=== PATIENT | female | born 1990 | race Caucasian/White ===

== ENCOUNTER 2016-12-12 22:10 | Emergency (ER) | payer SELFPAY ==
[~2016-12-12] VITALS: Ht 154.9 cm; Wt 49.9 kg
[~2016-12-12 22:10] MED LIST: SUCR1TAB29 PO; SULF1TAB24 PO
[2016-12-12] MEDS ORDERED: IPRATRPIUM/ALBUTEROL 0.5/2.5MG 3 ML NEBU. NEB ONE ×2 (22:15→22:30)
[2016-12-12] MEDS ORDERED: methylPREDNISolone SOD SUCC PF 125 MG/2 ML VIAL. IV ONE (22:30)
[2016-12-12] MEDS ORDERED: IV NORMAL SALINE 1000ML BAG 1,000 ML IV ONE (22:30)
[2016-12-12] MEDS ORDERED: FAMOTIDINE 20 MG/2 ML VIAL IVP ONE (22:30)
[2016-12-12 22:34] VITALS: BP 110/68
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
[2016-12-12] MEDS ORDERED: [UNRECOGNIZED DRUG - CODE] IJ (23:38)
[2016-12-12] MEDS ORDERED: PRED50TA PO (23:39)
--- NOTE | 2016-12-13 11:36 | EKG ---
[facility] [address] [place] [address] Test Date: 2016-12-12 Test Time: 23:02:47 Pat Name: BREANNE TORRES Department: Room: Gender: F Electronic Equipment Set Up Operator: RUDDY : 1990 Requested By: DAVID THOMPSON Order Number: [id number] Reading MD: Troy Aldridge Measurements Intervals [place] Rate: 125 P: -105 [place]: 104 QRS: 67 QRSD: 90 T: 47 QT: 350 QTc: 507 Interpretive Statements SINUS TACHYCARDIA QT PROLONGATION Electronically Signed On 12-15-2016 9:45:41 BORDER INSPECTOR by Troy Aldridge
== END 2016-12-12 23:42 | disposition home or self-care (01) ==
LOC: ER 22:18
DX: T78.40XA Allergy, unspecified, initial encounter (principal); R07.89 Other chest pain; J45.909 Unspecified asthma, uncomplicated; E05.90 Thyrotoxicosis, unspecified without thyrotoxic crisis or storm; Z88.8 Allergy status to other drugs, medicaments and biological substances
CPT/HCPCS: 93005; 94640; 96361; 96374; 96375; 99285; J2930; J7030; J7620; S0028

== ENCOUNTER 2016-12-14 02:42 | Emergency (ER) | payer SELFPAY ==
[~2016-12-14] VITALS: Ht 152.4 cm; Wt 49.9 kg
[~2016-12-14 02:42] MED LIST changes: +PRED50TA PO; +[UNRECOGNIZED DRUG - CODE] IJ
[2016-12-14 02:55] VITALS: BP 114/56
[2016-12-14] MEDS ORDERED: KETOROLAC TROMETHAMINE 60 MG/2 ML SYRINGE. IM ONE (03:15)
[2016-12-14] MEDS ORDERED: ACETAMINOPHEN 325 MG TABLET. PO ONE (03:30)
[2016-12-14] MEDS ORDERED: HYDR-971 PO (03:52)
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
--- NOTE | 2016-12-14 07:22 | RAD ---
Left shoulder, 3 views, 12/14/2016: History: Shoulder pain, trauma No fracture or dislocation is identified. The soft tissues are unremarkable. IMPRESSION: No acute left shoulder abnormality is detected.
== END 2016-12-14 04:07 | disposition home or self-care (01) ==
LOC: EEVIPCON 02:42 → ER 02:42
DX: M25.512 Pain in left shoulder (principal); J45.909 Unspecified asthma, uncomplicated; E05.90 Thyrotoxicosis, unspecified without thyrotoxic crisis or storm; Z88.6 Allergy status to analgesic agent; Y08.89XA Assault by other specified means, initial encounter; Y93.89 Activity, other specified; Y92.89 Other specified places as the place of occurrence of the external cause; Y99.8 Other external cause status
CPT/HCPCS: 73030; 99284